=== PATIENT | male | born 1975 | race Caucasian/White ===

== ENCOUNTER 2017-06-20 02:45 | Emergency (ER) | payer OTHER ==
[2017-06-20 03:32] LABS: BASO # 0.1 10^3/uL (0.0-0.2); BASO % 0.9 % (0.0-1.0); EOS # 0.3 10^3/uL (0.0-0.50); EOS % 4.8 % (0.0-3.0); HEMATOCRIT 44.1 % (42.0-52.0); HEMOGLOBIN 15.1 g/dl (13.5-17.5); IMMATURE GRANULOCYTE % 0.6 % (0-3.0); LYMPH # 2.2 10^3/uL (1.5-4.5); MEAN CORPUSCULAR HEMOGLOBIN 28.7 pg (27.0-33.0); MEAN CORPUSCULAR HGB CONC 34.2 g/dl (32.0-36.5); MEAN CORPUSCULAR VOLUME 83.8 fl (80.0-96.0); MONO # 0.6 10^3/uL (0.0-0.8); MONO % 8.8 % (0.0-5.0); NEUTROPHILS # 3.8 10^3/uL (1.8-7.7); NEUTROPHILS % 53.9 % (36.0-66.0); PLATELET COUNT, AUTOMATED 289 10^3/uL (150-450); RED BLOOD COUNT 5.26 10^6/uL (4.30-6.10); RED CELL DISTRIBUTION WIDTH 13.2 % (11.5-14.5)
[2017-06-20 03:36] LABS: INR 1.01; PARTIAL THROMBOPLASTIN TIME 27.1 SECONDS (26.8-37.9); PROTHROMBIN TIME 13.4 SECONDS (12.4-14.5)
[2017-06-20 03:44] LABS: ANION GAP 7 MEQ/L (8-16); BLOOD UREA NITROGEN 10 MG/DL (7-18); CALCIUM LEVEL 8.6 MG/DL (8.5-10.1); CARBON DIOXIDE LEVEL 26 MEQ/L (21-32); CHLORIDE LEVEL 113 MEQ/L (98-107); CPK CREATINE PHOSPHOKINASE 138 U/L (39-308); GLOMERULAR FILTRATION RATE > 60.0 (>60); GLUCOSE, FASTING 130 MG/DL (70-100); POTASSIUM SERUM 3.2 MEQ/L (3.5-5.1); SODIUM LEVEL 146 MEQ/L (136-145); TROPONIN I 0.03 NG/ML (< 0.10)
[2017-06-20 03:45] LABS: CK-MB VALUE MASS < 1.0 NG/ML (<3.6); MB/CK RELATIVE INDEX 0.72 (< OR =4)
[2017-06-20] MEDS: predniSONE 20 MG TAB PO (05:27)
[2017-06-22 10:50] LABS: BEDSIDE GLUCOSE 137 MG/DL (70-105)
== END 2017-06-20 05:39 | disposition home or self-care (01) ==
LOC: M ED 02:45
DX: G51.0 Bell's palsy (principal); I51.7 Cardiomegaly; Z79.899 Other long term (current) drug therapy
CPT/HCPCS: 71045

== ENCOUNTER → 2017-10-05 | Outpatient (CLI) | payer OTHER | LOC: M CARPUL 09:09 | DX: I10 Essential (primary) hypertension (principal); E66.01 Morbid (severe) obesity due to excess calories | CPT/HCPCS: 93306 ==

== ENCOUNTER 2017-12-15 07:59 | Emergency (ER) | payer OTHER ==
[2017-12-15 09:15] LABS: BASO # 0.1 10^3/uL (0.0-0.2); BASO % 1.1 % (0.0-1.0); EOS # 0.2 10^3/uL (0.0-0.50); EOS % 4.3 % (0.0-3.0); HEMATOCRIT 43.9 % (42.0-52.0); HEMOGLOBIN 14.8 g/dl (13.5-17.5); IMMATURE GRANULOCYTE % 0.2 % (0-3.0); LYMPH # 1.7 10^3/uL (1.5-4.5); LYMPH % 30.3 % (24.0-44.0); MEAN CORPUSCULAR HEMOGLOBIN 29.1 pg (27.0-33.0); MEAN CORPUSCULAR HGB CONC 33.7 g/dl (32.0-36.5); MEAN CORPUSCULAR VOLUME 86.2 fl (80.0-96.0); MONO # 0.6 10^3/uL (0.0-0.8); MONO % 9.8 % (0.0-5.0); NEUTROPHILS # 3.1 10^3/uL (1.8-7.7); NEUTROPHILS % 54.3 % (36.0-66.0); PLATELET COUNT, AUTOMATED 220 10^3/uL (150-450); RED BLOOD COUNT 5.09 10^6/uL (4.30-6.10); RED CELL DISTRIBUTION WIDTH 13.2 % (11.5-14.5); WHITE BLOOD COUNT 5.6 10^3/uL (4.0-10.0)
[2017-12-15] MEDS: NS 1,000 ML IV (09:29)
[2017-12-15] MEDS ORDERED: ISOVUE-370 76% 100ML VIAL (Q9967) As Ordered (09:45)
[2017-12-15 09:51] LABS: ALBUMIN/GLOBULIN RATIO 1.21 (1.00-1.93); ALKALINE PHOSPHATASE 74 U/L (45-117); ALT/SGPT 33 U/L (12-78); AMYLASE 85 U/L (25-115); ANION GAP 4 MEQ/L (8-16); AST/SGOT 23 U/L (7-37); BILIRUBIN,DIRECT 0.1 MG/DL (0.0-0.2); BILIRUBIN,TOTAL 0.5 MG/DL (0.2-1.0); BLOOD UREA NITROGEN 10 MG/DL (7-18); CALCIUM LEVEL 8.8 MG/DL (8.5-10.1); CARBON DIOXIDE LEVEL 29 MEQ/L (21-32); CHLORIDE LEVEL 110 MEQ/L (98-107); CREATININE FOR GFR 1.19 MG/DL (0.70-1.30); GLOMERULAR FILTRATION RATE > 60.0 (>60); GLUCOSE, FASTING 110 MG/DL (70-100); LIPASE 362 U/L (73-393); POTASSIUM SERUM 4.4 MEQ/L (3.5-5.1); SODIUM LEVEL 143 MEQ/L (136-145); TOTAL PROTEIN 7.3 GM/DL (6.4-8.2)
[2017-12-15 11:38] LABS: KETONE, URINE AUTO RFX NEGATIVE (NEGATIVE); LEUKOCYTE ESTERASE UR AUTO RFX NEGATIVE (NEGATIVE); NITRITE, URINE AUTO RFX NEGATIVE (NEGATIVE); RBC, URINE AUTO RFX 2 /HPF (0-3); SQUAM EPITHELIAL CELL UR AURFX 0 /HPF (0-6); WBC, URINE AUTO RFX 0 /HPF (0-3)
[2017-12-15 11:40] LABS: SPECIFIC GRAVITY UR AUTO RFX >1.060 (1.002-1.035)
== END 2017-12-15 11:59 | disposition home or self-care (01) ==
LOC: M ED 07:59
DX: K38.8 Other specified diseases of appendix (principal); I10 Essential (primary) hypertension; R51 Headache; G47.30 Sleep apnea, unspecified; K58.9 Irritable bowel syndrome, unspecified; M54.9 Dorsalgia, unspecified; F43.10 Post-traumatic stress disorder, unspecified; F41.9 Anxiety disorder, unspecified; F32.9 Major depressive disorder, single episode, unspecified; Z87.442 Personal history of urinary calculi; G51.0 Bell's palsy; Z79.899 Other long term (current) drug therapy
CPT/HCPCS: Q9967

== ENCOUNTER 2018-04-09 09:24 | Emergency (ER) | payer OTHER ==
[~2018-04-09] VITALS: Ht 175.3 cm; Wt 186.4 kg
[~2018-04-09 09:24] MED LIST: AMBI12.52 PO; ARIP1TAB2 PO; ARIP240S PO; ATOR40TA75 PO; BUPR300T34 PO; CIAL20TA PO; CLAR10CA3 PO; CYCL10TA PO; DEPA1TAB3 PO; DEPA500T2 PO; ELIQ5TAB PO; HYDR-3363 PO; KLON0.5T PO; MAGN400C PO; MODA200T15 PO; PRAZ2CAP PO; PRED20TA PO; RIBO100C PO; VENL75TA2 PO; VIIB20TA PO; VITA100067 PO; [UNRECOGNIZED DRUG - OTHER] PO; vilazodone PO
[2018-04-09] MEDS ORDERED: ACE65ERTAB PO (09:30)
[2018-04-09] MEDS ORDERED: ALEV220C2 PO (09:30)
[2018-04-09 10:24] LABS: HEMOGLOBIN 15.6 g/dl (13.5-17.5); MEAN CORPUSCULAR HEMOGLOBIN 28.7 pg (27.0-33.0); MEAN CORPUSCULAR HGB CONC 33.9 g/dl (32.0-36.5); MEAN CORPUSCULAR VOLUME 84.6 fl (80.0-96.0); PLATELET COUNT, AUTOMATED 217 10^3/uL (150-450); RED BLOOD COUNT 5.44 10^6/uL (4.30-6.10); WHITE BLOOD COUNT 7.1 10^3/uL (4.0-10.0)
[2018-04-09 10:27] LABS: ALBUMIN 4.1 GM/DL (3.2-5.2); ALT/SGPT 33 U/L (12-78); BILIRUBIN,TOTAL 0.7 MG/DL (0.2-1.0); BLOOD UREA NITROGEN 14 MG/DL (7-18); CALCIUM LEVEL 8.5 MG/DL (8.5-10.1); CARBON DIOXIDE LEVEL 25 MEQ/L (21-32); CHLORIDE LEVEL 107 MEQ/L (98-107); CREATININE FOR GFR 1.11 MG/DL (0.70-1.30); GLOMERULAR FILTRATION RATE > 60.0 (>60); GLUCOSE, FASTING 122 MG/DL (70-100); POTASSIUM SERUM 3.7 MEQ/L (3.5-5.1); SODIUM LEVEL 139 MEQ/L (136-145)
[2018-04-09] MEDS ORDERED: ISOVUE-370 76% 100ML VIAL (Q9967) As Ordered ONE (10:34)
[2018-04-09] MEDS ORDERED: KETOROLAC 30 MG/ML VIAL (J1885) IV ONE (10:45)
[2018-04-09] MEDS ORDERED: AMPICILLIN SOD/SULBACTAM SOD 3 GM in D5W MINI-BAG PLUS 100 ML IV ONE (11:00)
--- NOTE | 2018-04-09 11:42 | REP ---
CT NECK SOFT TISSUE WITH CONTRAST: 04/09/2018. Comparison: 03/28/2014. Clinical history: Swelling and pain left mandible region. Technique: Bolus 100 mL Isovue 370 with scanning through the neck in both coronal and sagittal reconstructions provided. Orthopedic metal artifact reduction and algorithm used because of dental amalgam. Findings: The bilateral parotid glands are symmetric and normal. Submandibular glands were also symmetric and normal. Bilateral jugulodigastric nodes are again seen. The largest is 11 mm, unchanged and with fatty center. This is on the left side near the carotid space. A similar sized node on the right with fatty change. Smaller nodes in the submandibular, submental region are also stable. Nodes deep to the sternocleidomastoids are stable and more numerous than typical. These are not abnormally enlarged but increased in number noted. Small posterior cervical chain nodes are also seen. The nasopharynx, oropharynx, hypopharynx, with its epiglottis and epiglottic folds were all unremarkable. No thickening of the adenoid pad. No enlargement of the uvula. The BB marker is adjacent to the left zygomatic arch and there is no finding near it. There is complete opacification of the left maxillary antrum, a new finding where only previously some minimal mucosal thickening at its floor noted 4 years ago. Frontal sinuses, sphenoid air cells, and the right maxillary sinus were unremarkable. The ostiomeatal complex on the right is normal on the left opacified. A few ethmoid air cells with mucosal thickening noted. The mastoids are unremarkable. The visualized portion of calvarium and skull base are intact. Some degenerative changes of the C1-C2 articulation but no compression fracture or destructive lesion. Mild cervical spondylosis at C5-6 and C6-7. No central canal stenosis or foraminal encroachment. Thyroid lobes symmetric and normal. Sternocleidomastoid muscles symmetric as are the posterior strap muscles. Impression: 1. Cervical lymphadenopathy again seen but essentially unchanged from 4 years ago. The largest nodes are jugulodigastric nodes at the carotid space up to 11 mm in short axis, stable. Most nodes are much smaller. They are more notable for increased numbers than size but all of this is stable. 2. The parotid and submandibular glands as well as both thyroid lobes are symmetric and unchanged. 3. Nasopharyngeal airway intact. Tracheal airway intact. Epiglottis and its folds normal. 4. Bones without acute finding. 5. The BB marker along the left malar region adjacent to the zygomatic arch is without finding in the area of interest. Electronically Signed by David Moss MD 04/09/2018 07:42 P
[2018-04-09] MEDS ORDERED: LIDOCAINE 1% MDV 20ML VIAL IM ONE (11:45)
[2018-04-09 11:53] VITALS: BP 161/80
[2018-04-09] MEDS ORDERED: KETO10TAB PO (12:11)
[2018-04-09] MEDS ORDERED: AMOX875T2 PO (12:12)
== END 2018-04-09 12:28 | disposition home or self-care (01) ==
LOC: M ED 09:24
DX: K04.7 Periapical abscess without sinus (principal); K08.89 Other specified disorders of teeth and supporting structures; R51 Headache; I10 Essential (primary) hypertension; Z79.899 Other long term (current) drug therapy
CPT/HCPCS: 10060; 70491; 80053; 85027; 96374; 96375; 99284; J1885; Q9967

== ENCOUNTER 2018-07-02 14:35 | Emergency (ER) | payer OTHER ==
[~2018-07-02] VITALS: Ht 175.3 cm; Wt 190.0 kg
[~2018-07-02 14:35] MED LIST changes: +ACE65ERTAB PO; +ALEV220C2 PO; +AMOX875T2 PO; +KETO10TAB PO
[2018-07-02 16:03] LABS: HEMATOCRIT 44.2 % (42.0-52.0); HEMOGLOBIN 14.9 g/dl (13.5-17.5); MEAN CORPUSCULAR HGB CONC 33.7 g/dl (32.0-36.5); MEAN CORPUSCULAR VOLUME 86.2 fl (80.0-96.0); PLATELET COUNT, AUTOMATED 229 10^3/uL (150-450); RED BLOOD COUNT 5.13 10^6/uL (4.30-6.10)
[2018-07-02 16:31] LABS: BLOOD UREA NITROGEN 13 MG/DL (7-18); CALCIUM LEVEL 8.5 MG/DL (8.5-10.1); CARBON DIOXIDE LEVEL 27 MEQ/L (21-32); CHLORIDE LEVEL 111 MEQ/L (98-107); GLOMERULAR FILTRATION RATE > 60.0 (>60); GLUCOSE, FASTING 86 MG/DL (70-100); POTASSIUM SERUM 3.9 MEQ/L (3.5-5.1); SODIUM LEVEL 144 MEQ/L (136-145)
--- NOTE | 2018-07-02 17:20 | ECGEPIP ---
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
[2018-07-02 17:53] VITALS: BP 147/86
--- NOTE | 2018-07-03 07:35 | REP ---
CT BRAIN WITHOUT CONTRAST: HISTORY: Right-sided facial numbness. Comparison CT study is from June 20, 2017. 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 There is mild mucosal thickening in the ethmoid air cells bilaterally. The visualized paranasal sinuses are otherwise clear. The bony calvarium is intact. No bony destructive lesion is seen. On soft tissue window settings, dill-white differentiation pattern remains normal above and below the tentorium. There is no evidence of intracranial hemorrhage. No infarct is seen. No extra-axial fluid collection, mass, or midline shift is observed. IMPRESSION: No acute intracranial abnormality. Electronically Signed by Og Ruiz MD 07/03/2018 07:43 A
--- NOTE | 2018-07-03 07:36 | REP ---
CHEST X-RAY: SINGLE AP VIEW. HISTORY: Cough. COMPARISON CHEST X-RAY: June 20, 2017 FINDINGS: The lungs are well inflated and clear. No infiltrate is seen. Pleural angles are sharp. Heart size is normal. No significant bony abnormality is seen. IMPRESSION: No active disease. Electronically Signed by Og Ruiz MD 07/03/2018 07:44 A
== END 2018-07-02 17:54 | disposition home or self-care (01) ==
LOC: M ED 14:35
DX: R22.0 Localized swelling, mass and lump, head (principal); Z86.69 Personal history of other diseases of the nervous system and sense organs; I10 Essential (primary) hypertension; Z91.19 Patient's noncompliance with other medical treatment and regimen; G47.33 Obstructive sleep apnea (adult) (pediatric); F43.10 Post-traumatic stress disorder, unspecified; F41.9 Anxiety disorder, unspecified; J30.2 Other seasonal allergic rhinitis; Z79.899 Other long term (current) drug therapy

== ENCOUNTER 2018-10-01 11:26 | Emergency (ER) | payer OTHER ==
[~2018-10-01] VITALS: Ht 175.3 cm; Wt 188.6 kg
--- NOTE | 2018-10-01 12:52 | ECGEPIP ---
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
[2018-10-01] MEDS ORDERED: CLAR10CA3 PO (13:51)
[2018-10-01] MEDS ORDERED: MECL-68 PO (13:51)
[2018-10-01] MEDS ORDERED: MECLIZINE 25 MG TABLET PO ONE (14:00)
[2018-10-01 14:03] VITALS: BP 163/93
== END 2018-10-01 14:25 | disposition home or self-care (01) ==
LOC: M ED 11:26
DX: H65.02 Acute serous otitis media, left ear (principal); R42 Dizziness and giddiness; I10 Essential (primary) hypertension; F33.9 Major depressive disorder, recurrent, unspecified; F41.9 Anxiety disorder, unspecified; F43.10 Post-traumatic stress disorder, unspecified; E78.5 Hyperlipidemia, unspecified; Z79.899 Other long term (current) drug therapy

== ENCOUNTER 2019-01-08 17:08 | Emergency (ER) | payer OTHER ==
[~2019-01-08] VITALS: Ht 175.3 cm; Wt 188.6 kg
[~2019-01-08 17:08] MED LIST changes: +MECL-68 PO
[2019-01-08 17:09] VITALS: BP 147/80
[2019-01-08] MEDS ORDERED: KEFL500C17 PO (18:19)
[2019-01-08] MEDS ORDERED: CEPHALEXIN 500 MG CAP PO ONE (18:30)
== END 2019-01-08 18:31 | disposition home or self-care (01) ==
LOC: M ED 17:08
DX: L03.116 Cellulitis of left lower limb (principal); I10 Essential (primary) hypertension; E78.5 Hyperlipidemia, unspecified; K58.9 Irritable bowel syndrome, unspecified; Z79.899 Other long term (current) drug therapy